=== PATIENT | female | born 1980 | race Caucasian/White ===

== ENCOUNTER 2021-03-11 09:38 | Outpatient (CLI) | payer BC, SELFPAY ==
--- NOTE | 2021-03-11 09:45 | MM_ITS ---
WS: [id number] SCREENING DIGITAL MAMMOGRAM WITH CAD HISTORY: SCREENING COMPARISON: None available. Bilateral CC and MLO views submitted. Computer aided detection analyzed. Breast composition: The breasts are heterogeneously dense, which may obscure small masses. 3 mm nodul e with partially obscured borders near 5:00 middle depth RIGHT breast. Nodule is of slightly increase d density. Otherwise no suspicious findings. MM/[place] [id number] IMPRESSION: BI-RADS: 0-Incomplete: Need additional imaging evaluation FOLLOW UP: Need Additional Imaging RIGHT breast: Spot compression views (CC and MLO). True ML. Ultrasound to follo w if abnormality persists.
== END 2021-03-11 09:39 | disposition home or self-care (01) ==
LOC: RADSHAW 09:43
PROVIDERS: PCP Physician Assistant Medical; Visit Provider Physician Assistant Medical
DX: Z12.31 Encounter for screening mammogram for malignant neoplasm of breast (principal)
CPT/HCPCS: 77067

== ENCOUNTER 2021-04-07 08:01 | Outpatient (CLI) | payer BC, SELFPAY ==
--- NOTE | 2021-04-07 08:06 | US_ITS ---
WS: [id number] ADDITIONAL VIEWS RIGHT BREAST RIGHT breast ultrasound, limited HISTORY: RT BREAST NODULE COMPARISON: 03/11/2021 Compression views right CC and MLO projection. True ML also submitted. 4.6 mm ovoid well-circumscribed nodule persists in the medial RIGHT breast. On the lateral projection and not sure whether this is above or below the nipple line. Ultrasound will be performed of the med ial RIGHT breast from 1-5 o'clock. RIGHT breast ultrasound, limited. No suspicious masses or shadowing. There is an ovoid cyst measuring 3 x 2 x 2 mm at 4:00, 4 cm from t he nipple. This may correspond to the mammographic abnormality. US/US breast RT limited* [id number] IMPRESSION: BI-RADS: 3-Probably Benign FOLLOW-UP: 6 Month Follow-up Recommend 6 month mammographic follow-up and possible ultrasound to determine l sukhi-term stability of the 4 mm nodule in the medial RIGHT breast.
== END 2021-04-07 08:02 | disposition home or self-care (01) ==
PROVIDERS: PCP Physician Assistant Medical; Visit Provider Physician Assistant Medical
DX: N63.10 Unspecified lump in the right breast, unspecified quadrant (principal)
CPT/HCPCS: 76642; 77065

== ENCOUNTER → 2023-05-24 08:24 | Outpatient (BNVA) | payer BC, SELFPAY | PROVIDERS: PCP Physician Assistant Medical; Visit Provider Nurse Practitioner Family | DX: R53.83 Other fatigue (principal); I10 Essential (primary) hypertension; J32.9 Chronic sinusitis, unspecified | CPT/HCPCS: 80053; 80061; 84443; 85025 ==

== ENCOUNTER → 2023-11-25 11:51 | Outpatient (BNVA) | payer BC, SELFPAY | PROVIDERS: PCP Nurse Practitioner Family; Visit Provider Nurse Practitioner | DX: R39.9 Unspecified symptoms and signs involving the genitourinary system (principal); N30.01 Acute cystitis with hematuria | CPT/HCPCS: 81000 ==